=== PATIENT | female | born 1970 | race Caucasian/White ===

== ENCOUNTER 2020-01-20 05:47 | Day surgery (SDC) | payer BC ==
[2020-01-20] MEDS ORDERED: Lactated Ringers 1,000 ML IV SCH (06:30)
[2020-01-20] MEDS ORDERED: DIPRIVAN 200 MG/20 ML IV ONE (06:44)
[2020-01-20] MEDS ORDERED: Xylocaine-Mpf 2% 5 Ml Vial ONE (06:44)
[2020-01-20] MEDS ORDERED: Ketamine HCl 50 MG/ML ONE (06:45)
[2020-01-20 07:54] VITALS: O2SAT 98
[2020-01-20 08:03] VITALS: BP 139/83; PULSE 76
--- NOTE | 2020-01-20 08:50 | OP ---
SURGERY DATE/TIME: 01/20/2020 0700 PREOPERATIVE DIAGNOSIS: Screening exam. POSTOPERATIVE DIAGNOSIS: Normal colon. PROCEDURE: Colonoscopy. SURGEON: Dr. Garcia. ANESTHESIA: MAC. Medications given by anesthesia department. HISTORY: The patient is a 49 year-old white female presenting now for screening colonoscopy. She was appraised of the risks of the procedure including the risk of perforation, phlebitis, untoward reaction to medication, bleeding and missed lesions. The patient verbalized her understanding and desired to have the procedure performed. DESCRIPTION OF PROCEDURE: The patient was given the medications by the anesthesia department. She had continuous pulse oximetry, ECG monitoring, intermittent blood pressure monitoring and tidal CO2 monitoring during the examination. She was placed in the left lateral decubitus position. A digital rectal examination was performed and revealed normal anal sphincter tone and no masses. The flexible Olympus pediatric colonoscope was used to intubate the rectum. A view of the colon was developed sequentially to the cecum. Video pictures were taken of the appendiceal orifice and cecum. Upon insertion and withdrawal, including a retroflex view in the rectum, no mucosal lesions were encountered. The scope was removed from the patient who tolerated the procedure well and was sent back to OP recovery in good condition. The prep was noted to be good.
== END 2020-01-20 08:08 | disposition home or self-care (01) ==
LOC: SDC 05:47
PROVIDERS: ATTEND Family Medicine
DX: Z12.11 Encounter for screening for malignant neoplasm of colon (principal)
CPT/HCPCS: J2704

== ENCOUNTER 2021-10-03 18:47 | Emergency (ER) | payer BC ==
[2021-10-03] MEDS ORDERED: Sodium Chloride 0.9% 1000 ML 1,000 ML IV STA (19:07)
[2021-10-03] MEDS ORDERED: MORPHINE SULFATE 4 MG INJ IV ONE (19:12)
[2021-10-03] MEDS ORDERED: Zofran 4 MG/2 ML VIAL IV ONE (19:12)
[2021-10-03] MEDS ORDERED: MORPHINE SULFATE 4 MG INJ ONE (19:13)
[2021-10-03] MEDS ORDERED: Zofran 4 MG/2 ML VIAL ONE (19:13)
[2021-10-03] MEDS ORDERED: Sodium Chloride 0.9% 1000 ML 1,000 ML ONE (19:14)
[2021-10-03 19:27] LABS: Absolute Neutrophil Ct (ANC) 6.41 (1.4-6.9); Basophil (Absolute #) 0.02 (0-0.4); Eosinophil % 1.2 % (0.00-5.0); Eosinophil (Absolute #) 0.11 (0-0.5); Hematocrit 43.1 % (35-47); Hemoglobin 13.8 gm/dl (12.0-16.0); Lymphocyte (Absolute #) 1.86 (1.0-4.6); Lymphocytes % 19.7 % (24.0-44.0); Mean Cell Volume 82.3 fl (78-100); Mean Corpuscular Hemoglobin 26.3 pg (26-32); Mean Platelet Volume 10.9 fl (7.5-11.0); Monocyte (Absolute #) 1.03 (0.0-1.3); Monocytes % 10.9 % (0.0-12.0); Platelet Count 285 K/mm3 (150-450); Red Blood Count 5.24 M/mm3 (4.1-5.4); Red Cell Distribution Width 13.9 % (11.5-14.0); White Blood Count 9.4 K/mm3 (4.0-10.5)
[2021-10-03 19:34] LABS: Appearance SLIGHTLY CLOUDY (CLEAR); Bacteria RARE /HPF (NEGATIVE); Bilirubin NEGATIVE (NEGATIVE); Blood MODERATE Ery/ul (0-5); Epithelial Cells RARE /HPF (FEW); Glucose NEGATIVE (NEGATIVE); Ketones SMALL (NEGATIVE); Leukocyte Esterase SMALL (NEGATIVE); Mucus SLIGHT /HPF (NEGATIVE); Nitrite NEGATIVE (NEGATIVE); Protein,Urine Dip NEGATIVE (Negative); RBC 0-2 /HPF (0-2); Specific Gravity 1.025 (1.005-1.025); Urobilinogen NEGATIVE mg/dL (0-1)
[2021-10-03 19:42] LABS: ALBUMIN 4.7 g/dL (3.5-5.0); ALKALINE PHOSPHATASE 85 U/L (38-126); ANION GAP 16.8 MEQ/L (5-15); BLOOD UREA NITROGEN 18 mg/dL (7-17); CHLORIDE 102 mmol/L (98-107); Calcium 9.8 mg/dL (8.4-10.2); Carbon Dioxide 22 mmol/L (22-30); Creatinine 1 0.78 mg/dL (0.52-1.04); EST GLOMERULAR FILTRATION RATE > 60.0 ML/MIN; Glucose 102 mg/dL (74-106); Potassium 3.5 mmol/L (3.5-5.1); SGOT/AST 22 U/L (14-36); SGPT/ALT 20 U/L (0-35); SODIUM 138 mmol/L (137-145); Total Protein 7.6 g/dL (6.3-8.2)
[2021-10-03 20:09] VITALS: O2SAT 97
--- NOTE | 2021-10-03 20:44 | ERPHSYRPT ---
- History of Present Illness Time Seen by Provider: 10/03/21 18:51 Source: patient Exam Limitations: no limitations Patient Subjective Stated Complaint: HTN Triage Nursing Assessment: Patient ambulated back to ED and transferred self to bed. Patient A+O X3. Patient's skin pink, warm and dry. Patient complains of headache since Thursday. Patient was seen by [facility] this evening for eval and her blood pressure 210/130 and was sent to ED for eval. Patient complains of headache 12/31. Physician History: 51 years old female with a history of hypertension presented in the ER from urgent care with elevated blood pressure and headache. Patient reports she is having sinus congestion a week with frontal headache moderate to severe intensity dull pressure/sharp without any focal numbness tingling or weakness. Minimal relief with [id number] medications. Earlier she was at urgent care and her pressure was more than 200 systolic and is sent in the ER. Patient also tachycardic with heart rate in 120s despite taking her routine blood pressure medications. Denies any chest pain palpitations or shortness of breath but does have sinus congestion with postnasal drip. No fever or chills reported. Took home Covid test which was negative. Timing/Duration: day(s) (5), constant, worse Quality: fullness, pressure, sharpness Head Pain Location: frontal Severity of Pain-Max: severe Severity of Pain-Current: moderate Recent Head Trauma: no recent headache/trauma Associated Symptoms: fatigue, facial pain, nasal congestion, sinus infection, No dizziness, No fever/chills, No nausea/vomiting, No numbness in legs/feet, No stiff neck, No weakness Previous symptoms: no prior history Allergies/Adverse Reactions: naproxen [From Aleve] Allergy (Intermediate, Verified 10/03/21 18:53) Vomiting Home Medications: Amlodipine Besylate 5 mg [Norvasc 5 mg] 2.5 mg PO DAILY 10/03/21 [History] Guaifenesin 600 mg ER [Mucinex 600MG ER Tabs] 1 tab PO DAILY 10/03/21 [History] Lisinopril/Hydrochlorothiazide [Lisinopril-Hctz 20-12.5 mg Tab] 1 tab PO DAILY 10/03/21 [History] Methimazole 10 mg PO TID 10/03/21 [History] Propranolol HCl [Inderal Xl] 1 tab PO BID 10/03/21 [History] Hx Influenza Vaccination/Date Given: Yes Hx Pneumococcal Vaccination/Date Given: No Immunizations Up to Date: Yes Travel Risk - International Travel Have you traveled outside of the country in past 3 weeks: No - Coronavirus Screening Are you exhibiting any of the following symptoms?: No Close contact with a COVID-19 positive Pt in past 14-21 Days: No - Vaccine Status Have you recieved a Covid-19 vaccination: Yes Operating Room Rn: Moderna - Vaccination Dates Date of 2cond Vaccination (if applicable): 11/21/2020 - Review of Systems Constitutional: Fatigue Eyes: No Symptoms Ears, Nose, & Throat: Nose Congestion, Sinus Drainage Respiratory: No Symptoms Cardiac: Palpitations Abdominal/Gastrointestinal: No Symptoms Genitourinary Symptoms: No Symptoms Musculoskeletal: No Symptoms Skin: No Symptoms Neurological: No Symptoms Psychological: No Symptoms Endocrine: No Symptoms Hematologic/Lymphatic: No Symptoms Immunological/Allergic: No Symptoms - Past Medical History Neurological History: Migraines ENT History: No Pertinent History Cardiac History: Hypertension Respiratory History: No Pertinent History Endocrine Medical History: Hypothyroidism Musculoskeletal History: Osteoarthritis GI Medical History: No Pertinent History History: No Pertinent History Psycho-Social History: No Pertinent History Female Reproductive Disorders: No Pertinent History Other Medical History: GRAVES DISEASE, R TKA. TO HAVE L TKA IN JANUARY. - Past Surgical History Past Surgical History: Yes Neuro Surgical History: No Pertinent History Cardiac: No Pertinent History Respiratory: No Pertinent History Gastrointestinal: No Pertinent History Genitourinary: No Pertinent History Musculoskeletal: Joint Replacement Female Surgical History: No Pertinent History Other Surgical History: RTK - Social History Smoking Status: Never smoker Exposure to second hand smoke: No Drug Use: none Patient Lives Alone: Yes - Female History Hx Last Menstrual Period: two weeks ago - Nursing Vital Signs Nursing Vital Signs: Initial Vital Signs Temperature 98.6 F 10/03/21 19:01 Pulse Rate 115 H 10/03/21 19:01 Respiratory Rate 18 10/03/21 19:01 Blood Pressure 193/118 10/03/21 19:01 O2 Sat by Pulse Oximetry 98 10/03/21 19:01 Pain Scale Pain Intensity 0 - Physical Exam General Appearance: no apparent distress, alert Eye Exam: PERRL/EOMI, eyes nml inspection Ears, Nose, Throat Exam: moist mucous membranes, pharyngeal erythema Neck Exam: normal inspection, non-tender, supple, full range of motion Respiratory Exam: normal breath sounds, lungs clear Cardiovascular Exam: normal heart sounds, tachycardia Gastrointestinal/Abdominal Exam: soft, normal bowel sounds, No tenderness Back Exam: normal inspection, normal range of motion Extremity Exam: normal inspection, normal range of motion, pelvis stable Mental Status Exam: alert, oriented x 3, 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 Exam: normal hearing, normal speech, PERRL Coordination/Gait Exam: normal finger to nose, normal gait, normal cerebellar function, negative Romberg's sign Motor/Sensory Exam: no motor deficit, no sensory deficit, no pronator drift, negative Babinski's sign DTR Exam: bicep (R): 2+, bicep (L): 2+, knee (R): 2+, knee (L): 2+ Skin Exam: normal color SpO2 Interpretation: normal SpO2: 97 O2 Delivery: Room Air - Course EKG Interpreted by Me: RATE (124), Sinus Tach, NORMAL AXIS, NORMAL INTERVALS, NORMAL QRS Ordered Tests: Medication Summary Discontinued Medications Generic Name Dose Route Start Last Admin Trade Name Diann PRN Reason Stop Dose Admin Amoxicillin/Clavulanate Potassium 875 mg 10/03/21 21:20 10/03/21 21:25 Amox Tr/Potassium Clavulanate 875 Mg Tablet PO 10/03/21 21:21 875 mg STAT ONE Administration Amoxicillin/Clavulanate Potassium Confirm 10/03/21 21:25 Amox Tr/Potassium Clavulanate 875 Mg Tablet Administered 10/03/21 21:26 Dose 875 mg .ROUTE .STK-MED ONE Sodium Chloride 1,000 mls @ 999 mls/hr 10/03/21 19:07 10/03/21 20:17 Sodium Chloride 0.9% 1000 Ml IV 10/03/21 20:07 Infused .Q1H1M STA Infusion Sodium Chloride Confirm 10/03/21 19:14 Sodium Chloride 0.9% 1000 Ml Administered 10/03/21 19:15 Dose 1,000 mls @ ud .ROUTE .STK-MED ONE Morphine Sulfate 4 mg 10/03/21 19:12 10/03/21 19:16 Morphine Sulfate 4 Mg/Ml Injection IV 10/03/21 19:13 4 mg STAT ONE Administration Morphine Sulfate Confirm 10/03/21 19:13 Morphine Sulfate 4 Mg/Ml Injection Administered 10/03/21 19:14 Dose 4 mg .ROUTE .STK-MED ONE Ondansetron HCl 4 mg 10/03/21 19:12 10/03/21 19:16 Ondansetron Hcl 4 Mg/2 Ml Vial IV 10/03/21 19:13 4 mg STAT ONE Administration Ondansetron HCl Confirm 10/03/21 19:13 Ondansetron Hcl 4 Mg/2 Ml Vial Administered 10/03/21 19:14 Dose 4 mg .ROUTE .STK-MED ONE Lab/Rad Data: Laboratory Result Diagrams 10/03/21 19:00 10/03/21 19:00 Laboratory Results 10/03/21 10/03/21 10/03/21 Range/Units 19:10 19:07 19:00 WBC (4.0-10.5) K/mm3 RBC (4.1-5.4) M/mm3 Hgb (12.0-16.0) gm/dl Hct (35-47) % MCV (78-100) fl MCH (26-32) pg MCHC (32-36) g/dl RDW (11.5-14.0) % Plt Count (150-450) K/mm3 MPV (7.5-11.0) fl Gran % (36.0-66.0) % Eos # (Auto) (0-0.5) Absolute Lymphs (auto) (1.0-4.6) Absolute Monos (auto) (0.0-1.3) Lymphocytes % (24.0-44.0) % Monocytes % (0.0-12.0) % Eosinophils % (0.00-5.0) % Basophils % (0.0-0.4) % Absolute Granulocytes (1.4-6.9) Basophils # (0-0.4) Sodium (137-145) mmol/L Potassium (3.5-5.1) mmol/L Chloride (98-107) mmol/L Carbon Dioxide (22-30) mmol/L Anion Gap (5-15) MEQ/L BUN (7-17) mg/dL Creatinine (0.52-1.04) mg/dL Estimated GFR ML/MIN Glucose (74-106) mg/dL Lactic Acid 1.3 (0.4-2.0) Calcium (8.4-10.2) mg/dL Total Bilirubin (0.2-1.3) mg/dL AST (14-36) U/L ALT (0-35) U/L Alkaline Phosphatase (38-126) U/L Troponin I < 0.012 (0.000-0.034) ng/mL Serum Total Protein (6.3-8.2) g/dL Albumin (3.5-5.0) g/dL Urine Color YELLOW (YELLOW) Urine Appearance SLIGHTLY CLOUDY (CLEAR) Urine pH 5.0 (5-6) Ur Specific Plover 1.025 (1.005-1.025) Urine Protein NEGATIVE (Negative) Urine Ketones SMALL (NEGATIVE) Urine Blood MODERATE (0-5) Chente/ul Urine Nitrite NEGATIVE (NEGATIVE) Urine Bilirubin NEGATIVE (NEGATIVE) Urine Urobilinogen NEGATIVE (0-1) mg/dL Ur Leukocyte Esterase SMALL (NEGATIVE) Urine WBC (Auto) 6-10 (0-5) /HPF Urine RBC (Auto) 0-2 (0-2) /HPF U Epithel Cells (Auto) RARE (FEW) /HPF Urine Bacteria (Auto) RARE (NEGATIVE) /HPF Urine Mucus (Auto) SLIGHT (NEGATIVE) /HPF Urine Culture Reflexed YES (NO) Urine Glucose NEGATIVE (NEGATIVE) mg/dL 10/03/21 10/03/21 Range/Units 19:00 19:00 WBC 9.4 (4.0-10.5) K/mm3 RBC 5.24 (4.1-5.4) M/mm3 Hgb 13.8 (12.0-16.0) gm/dl Hct 43.1 (35-47) % MCV 82.3 (78-100) fl MCH 26.3 (26-32) pg MCHC 32.0 (32-36) g/dl RDW 13.9 (11.5-14.0) % Plt Count 285 (150-450) K/mm3 MPV 10.9 (7.5-11.0) fl Gran % 68.0 H (36.0-66.0) % Eos # (Auto) 0.11 (0-0.5) Absolute Lymphs (auto) 1.86 (1.0-4.6) Absolute Monos (auto) 1.03 (0.0-1.3) Lymphocytes % 19.7 L (24.0-44.0) % Monocytes % 10.9 (0.0-12.0) % Eosinophils % 1.2 (0.00-5.0) % Basophils % 0.2 (0.0-0.4) % Absolute Granulocytes 6.41 (1.4-6.9) Basophils # 0.02 (0-0.4) Sodium 138 (137-145) mmol/L Potassium 3.5 (3.5-5.1) mmol/L Chloride 102 (98-107) mmol/L Carbon Dioxide 22 (22-30) mmol/L Anion Gap 16.8 H (5-15) MEQ/L BUN 18 H (7-17) mg/dL Creatinine 0.78 (0.52-1.04) mg/dL Estimated GFR > 60.0 ML/MIN Glucose 102 (74-106) mg/dL Lactic Acid (0.4-2.0) Calcium 9.8 (8.4-10.2) mg/dL Total Bilirubin 0.60 (0.2-1.3) mg/dL AST 22 (14-36) U/L ALT 20 (0-35) U/L Alkaline Phosphatase 85 (38-126) U/L Troponin I (0.000-0.034) ng/mL Serum Total Protein 7.6 (6.3-8.2) g/dL Albumin 4.7 (3.5-5.0) g/dL Urine Color (YELLOW) Urine Appearance (CLEAR) Urine pH (5-6) Ur Specific Plover (1.005-1.025) Urine Protein (Negative) Urine Ketones (NEGATIVE) Urine Blood (0-5) Chente/ul Urine Nitrite (NEGATIVE) Urine Bilirubin (NEGATIVE) Urine Urobilinogen (0-1) mg/dL Ur Leukocyte Esterase (NEGATIVE) Urine WBC (Auto) (0-5) /HPF Urine RBC (Auto) (0-2) /HPF U Epithel Cells (Auto) (FEW) /HPF Urine Bacteria (Auto) (NEGATIVE) /HPF Urine Mucus (Auto) (NEGATIVE) /HPF Urine Culture Reflexed (NO) Urine Glucose (NEGATIVE) mg/dL - Progress Progress: improved Air Movement: good Progress Note: 10/03/21 21:21 Patient was tachycardic and hypertensive on presentation along with headache. She is given fluids and symptomatic treatment for headache which improved her tachycardia and headache is resolved. Blood pressure also improved to 140s without any antihypertensives. Work-up grossly unremarkable including CT head which is a negative preliminary report. Chest x-ray reviewed by me did not reveal any obvious infiltrative process. I believe patient has acute sinusitis and causing headache and because of pain her pressure is not well controlled. She is advised to take her routine blood pressure medication and monitor it at home. I would start her on Augmentin and outpatient follow-up recommended. Discu ssed signs symptoms of worsening needing return to ER which she seems understanding. Blood Culture(s) Obtained: No Antibiotics given: Yes Counseled pt/family regarding: lab results, diagnosis, need for follow-up, rad results - Departure Departure Disposition: Home Clinical Impression: Sinus headache, Uncontrolled hypertension, Acute sinusitis Condition: Stable Critical Care Time: No Referrals: IAIN FARR [Primary Care Provider] - Follow up/PCP as directed (1-2 days for reevaluation) Instructions: Sinus Headache (DC), Headache, Adult (DC), Malignant Hypertension (DC) Additional Instructions: Monitor your blood pressure regularly, keep a log and follow-up with primary care for reevaluation. Take Tylenol/ibuprofen as needed for headache. Return to ER for intractable headache, numbness tingling focal weakness etc. Prescriptions: Amox Tr/Potass Clav. 875 mg [Augmentin 875-125 Tablet] 875 mg PO BID #14 tablet
[2021-10-03 21:07] VITALS: BP 150/97
[2021-10-03] MEDS ORDERED: Augmentin 875-125 Tablet PO ONE (21:20)
[2021-10-03] MEDS ORDERED: Augmentin 875-125 Tablet ONE (21:25)
[2021-10-03 21:49] VITALS: PULSE 94
--- NOTE | 2021-10-04 08:47 | XRAY ---
Indication: Headache. Hypertension. Multiple contiguous axial images obtained through the head without contrast. Comparison: None Ventriculosulcal pattern appears symmetric. Remote lacunar infarct left basal ganglia. No acute intracranial hemorrhage, abnormal extra-axial fluid collection, or mass effect. Fourth ventricle is midline without hydrocephalus. Simons-white matter differentiation preserved. Bony calvarium intact. Near complete opacification left maxillary sinus with fluid leveling and mild/moderate mucosal thickening both ethmoid/right maxillary sinuses. Mastoid air cells are clear. Impression: 1. Pansinusitis and remote lacunar infarct left basal ganglia. 2. Remaining CT head without contrast exam is negative.
--- NOTE | 2021-10-04 08:48 | XRAY ---
Indication: Headache. Hypertension. Comparison: None Portable chest clear. Heart and mediastinal structures within normal limits with incidental right hilar calcified nodes. Bony thorax intact with mild degenerative changes. Impression: Nonacute chest with chronic features.
== END 2021-10-03 21:40 | disposition home or self-care (01) ==
LOC: ED 18:47
DX: I10 Essential (primary) hypertension (principal); J01.90 Acute sinusitis, unspecified; R51.9 Headache, unspecified; R09.81 Nasal congestion; R00.0 Tachycardia, unspecified; R53.83 Other fatigue; Z79.899 Other long term (current) drug therapy
CPT/HCPCS: 36000; 36415; 70450; 71045; 80053; 81001; 83605; 84484; 85025; 87086; 93005; 93041; 96374; 96375; 99284; J2270; J2405; A9270-GY

== ENCOUNTER 2023-03-20 05:49 | Day surgery (SDC) | payer BC ==
[2023-03-20] MEDS ORDERED: Lactated Ringers 1,000 ML IV SCH (06:30)
[2023-03-20 06:31] LABS: HCG URINE TEST NEGATIVE (NEGATIVE)
[2023-03-20 06:46] VITALS: RESP 18
[2023-03-20] MEDS ORDERED: Versed 2 MG/2 ML Injection ONE (07:32)
[2023-03-20] MEDS ORDERED: DIPRIVAN 200 MG/20 ML IV ONE (07:32)
[2023-03-20 08:28] VITALS: TEMP 97; O2SAT 98
[2023-03-20 08:36] VITALS: BP 154/91; PULSE 62
--- NOTE | 2023-04-06 10:24 | OP ---
SURGERY DATE/TIME: 03/20/2023 0731 PREOPERATIVE DIAGNOSIS: Chronic diarrhea. POSTOPERATIVE DIAGNOSIS: Normal colon. PROCEDURE: Colonoscopy with cold forceps biopsy to rule out collagenous colitis. SURGEON: Dr. Garcia. ANESTHESIA: MAC. Medications given by anesthesia department. HISTORY: The patient is a 52-year-old white female presenting now for colonoscopic evaluation. She reports she has been having problems with chronic diarrhea. There was concern for looking for the etiology of this problem. The patient was appraised of the risks of the procedure including the risk of perforation, phlebitis, untoward reaction to medication, bleeding and missed lesions. The patient verbalized her understanding and desired to have the procedure performed. DESCRIPTION OF PROCEDURE: The patient was given the medications by the anesthesia department. She had continuous pulse oximetry, ECG monitoring and intermittent blood pressure monitoring during the examination. She was placed in the left lateral decubitus position. A digital rectal examination was performed and revealed normal anal sphincter tone and no masses. The flexible Olympus pediatric colonoscope was used to intubate the rectum. A view of the colon was developed sequentially to the cecum including a short distance into the terminal ileum. Upon insertion and withdrawal including a retroflex view in the rectum, there appeared to be normal colonic mucosa. Biopsies were taken throughout the colon to rule out any underlying pathology such as collagenous colitis. The scope was removed from the patient who tolerated the procedure well and was sent back to OP recovery in good condition. The prep was noted to be fair to good.
== END 2023-03-20 08:45 | disposition home or self-care (01) ==
LOC: SDC 05:49
PROVIDERS: ATTEND Family Medicine
DX: K52.9 Noninfective gastroenteritis and colitis, unspecified (principal)
CPT/HCPCS: 81025; 88305; J2250; J2704

== ENCOUNTER 2024-05-09 09:56 | Day surgery (SDC) | payer BC ==
--- NOTE | 2024-05-09 08:18 | HP ---
HISTORY AND PHYSICAL HISTORY OF PRESENT ILLNESS: History of bright red blood per rectum, mostly bright, occasional tarry, has a bowel movement 6 to 8 times a day. Bowel movements sometimes stringy or mucousy. Family history of maternal grandmother with colon cancer. Negative for inflammatory bowel disease. Last colonoscopy was a year to a year and a half ago. PAST MEDICAL HISTORY: Sinus infections, hypertension, depression, hyperlipidemia, history of sleep apnea, on CPAP, history of anemia in the past, diarrhea, history of Graves disease, history of menopause, history of thyroid disease. HOME MEDICATIONS: Pravastatin for hyperlipidemia, has been on some Rexulti, Prozac, methimazole for some thyroid disease, lisinopril/hydrochlorothiazide, amlodipine, propranolol. ALLERGIES: Morphine, Tylenol with codeine. PAST SURGICAL HISTORY: Tonsillectomy, hip replacement bilaterally in the past, D and C, in the past, knee replacement bilaterally, history of LEEP in the past, history of colonoscopy in the past. SOCIAL HISTORY: No smoking. Occasional alcohol use. FAMILY HISTORY: Alzheimer's, hyperlipidemia, hypertension, colon cancer, glaucoma, high cholesterol, heart disease, COPD, and diabetes. REVIEW OF SYSTEMS: Twelve systems reviewed. Pertinent per as noted above. No chest pain or palpitations. Other systems negative or noncontributory as above and per preadmission questionnaire. Had a sinus infection 3 months ago on antibiotics at that time. PHYSICAL EXAMINATION: GENERAL: Height 5 feet 7 inches. BMI 25.06. No acute distress. HEENT: Sclerae nonicteric. Extraocular movements intact. NECK: No JVD. CHEST: Equal excursion, nonlabored breathing. CARDIOVASCULAR: Regular rate and rhythm. ABDOMEN: Soft. SKIN: Dry. EXTREMITIES: No cyanosis or edema. NEUROLOGIC: Alert and oriented, moving extremities symmetrically. PSYCHIATRIC: Appropriate mood and affect. RECTAL: Deferred until diagnostic exam. IMPRESSION: Rectal bleeding. Need for colonoscopy to evaluate for colitis, inflammatory bowel disease, polyps, neoplasia or other etiology. Shown the risk sheet and explained the procedure in detail including bleeding, infection, risk of bowel injury or perforation, risk of misdiagnosis or nondiagnosis requiring possible need for other procedure or referral, incomplete exam possibly requiring barium enema or swallow, risk of sedation or anesthesia, risk of bowel prep but not limited to. Will proceed with outpatient colonoscopy, possible internal hemorrhoid band if indicated. Otherwise, continue medications for depression, Graves disease, hyperlipidemia, hypertension. Continue medial management for sleep apnea. The patient agrees to the plan.
[2024-05-09] MEDS ORDERED: Lactated Ringers 1,000 ML IV ONE (10:15)
[2024-05-09] MEDS: Lactated Ringers 1,000 ML IV SCH (10:19)
[2024-05-09] MEDS ORDERED: Xylocaine-Mpf 2% 5 Ml Vial ONE (12:32)
[2024-05-09] MEDS ORDERED: DIPRIVAN 200 MG/20 ML IV ONE ×2 (12:33→12:48)
[2024-05-09] MEDS ORDERED: Versed 2 MG/2 ML Injection ONE (12:33)
[2024-05-09 13:36] VITALS: BP 119/77; PULSE 73; RESP 18; TEMP 97.6; O2SAT 96
--- NOTE | 2024-05-10 20:53 | OP ---
SURGERY DATE/TIME: 05/09/2024 9422 - 0296 PREOPERATIVE DIAGNOSIS: History of rectal bleeding, history of some internal and external hemorrhoids. POSTOPERATIVE DIAGNOSES: 1) Fair bowel prep. 2) Small early polyps versus hyperplastic lesions, transverse colon and rectum. 3) A few small diverticula, left colon. 4) Grade 2 to 3 internal and external hemorrhoids. 5) ASA class 3. 6) Withdrawal time was approximately 12 minutes. PROCEDURE: Colonoscopy. SURGEON: Jean Hughes MD ANESTHESIA: MAC. ESTIMATED BLOOD LOSS: Minimal. INDICATIONS: Consent obtained. DESCRIPTION OF PROCEDURE AND FINDINGS: Patient was taken to the endoscopy room. MAC anesthesia induced. After official time-out and no disagreement with planned procedure, digital rectal exam did not reveal any rectal masses. She did have some internal and external hemorrhoids. Videocolonoscope inserted and passed up through a slightly tortuous sigmoid, descending, transverse, and ascending colon around to the cecum. I did hit the button, one of the pictures saved on the appendiceal orifice and valve area. Otherwise, the scope was slowly and carefully withdrawn over the next 12 minutes. Prep overall was fair. A little bit of liquidy, semisolid stool throughout the colon limiting the exam a little bit for small lesions. This was suction irrigated out as clear as possible. I crossed the transverse colon. Small early polyp versus hyperplastic lesion, hot biopsy forceps, vigorous cautery. Good hemostasis noted. The scope was then carefully pulled back through the left colon. There were a few small scattered diverticula, few in nature. Down in the rectum there were 3 small early polyps versus hyperplastic lesions, hot biopsy forceps. Good hemostasis noted. She did have some internal and external hemorrhoids that were probably grade 2. She is having bleeding. It was felt they warranted consideration of banding. Scope was withdrawn. At this point, the half arambula retractors were carefully inserted, and it was felt these grade 2 hemorrhoids are causing recurrent bleeding and worthwhile to place some bands. Suction power washer carefully applied to the top edge of the hemorrhoid in the left lateral position and then again in the right posterior position and then again in the right anterior position. Appeared to have adequate hemostasis. Patient tolerated the procedure well. There were no immediate complications. Findings discussed with family in the waiting area.
== END 2024-05-09 13:44 | disposition home or self-care (01) ==
LOC: SDC 09:56
PROVIDERS: ATTEND Surgery
DX: D12.3 Benign neoplasm of transverse colon (principal); K62.5 Hemorrhage of anus and rectum; Z80.0 Family history of malignant neoplasm of digestive organs; K57.30 Diverticulosis of large intestine without perforation or abscess without bleeding; K64.1 Second degree hemorrhoids; K64.2 Third degree hemorrhoids; K64.4 Residual hemorrhoidal skin tags
CPT/HCPCS: 93005; J2250; J2704